=== PATIENT | female | born 1955 ===

== ENCOUNTER 2018-03-27 17:16 | Emergency (ER) | payer MEDICAID ==
--- NOTE | 2018-03-27 18:02 | ED PDOC ---
HPI: Hypertension/Hypotension Time Seen by Provider: 03/27/18 17:41 Chief Complaint (Nursing): High Blood Pressure Chief Complaint (Provider): "HTN" History Per: Patient Additional Complaint(s): Patient is a 62 yo female, PMH of DM and HTN, presents to ED with complaints of dizziness, worse with movement. Pt also reports associated nausea, no vomiting. pt concerned that her BP might be elevated. No Cp or SOB. no palpitations or Diaphoresis Past Medical History Reviewed: Historical Data, Nursing Documentation, Vital Signs Vital Signs: Last Vital Signs Temp 97.7 F 03/27/18 17:21 Pulse 92 H 03/27/18 17:21 Resp 18 03/27/18 17:21 BP 137/90 03/27/18 17:21 Pulse Ox 100 03/27/18 17:21 - Medical History PMH: HTN, Hypercholesterolemia, Hypothyroidism - Family History Family History: States: Unknown Family Hx - Living Arrangements Living Arrangements: With Family - Social History Current smoker - smoking cessation education provided: No Alcohol: None Drugs: Denies - Immunization History Hx Tetanus Toxoid Vaccination: No Hx Influenza Vaccination: No Hx Pneumococcal Vaccination: No - Home Medications Home Medications: Ambulatory Orders Medication Instructions Recorded Albuterol HFA [Ventolin HFA 90 1 puff IH Q4 PRN #1 inh 08/09/15 mcg/actuation (8 g)] Azithromycin [Zithromax Z-Mike] 250 mg PO DAILY #1 packet 08/09/15 Promethazine HCl/Codeine 5 ml PO Q6 PRN #120 ml 08/09/15 [Promethazine HCl-Codeine Phosphate 10 mg/5 ml] Meclizine [Meclizine*] 25 mg PO Q6 #30 tab 03/27/18 Methylprednisolone [Medrol Dose 4 mg PO DAILY #21 mg 03/27/18 Pack (21 tabs)] - Allergies Allergies/Adverse Reactions: Allergies Allergy/AdvReac Type Severity Reaction Status Date / Time No Known Allergies Allergy Verified 08/08/15 20:38 Review of Systems ROS Statement: Except As Marked, All Systems Reviewed And Found Negative Neurological: Positive for: Dizziness Physical Exam - Reviewed Nursing Documentation Reviewed: Yes Vital Signs Reviewed: Yes - Physical Exam Appears: Positive for: Well, Non-toxic, No Acute Distress Head Exam: Positive for: ATRAUMATIC, NORMAL INSPECTION, NORMOCEPHALIC Skin: Positive for: Normal Color, Warm, DRY Eye Exam: Positive for: EOMI, Normal appearance, PERRL ENT: Positive for: Normal ENT Inspection Neck: Positive for: Normal, Painless ROM Cardiovascular/Chest: Positive for: Regular Rate, Rhythm Respiratory: Positive for: CNT, Normal Breath Sounds Gastrointestinal/Abdominal: Positive for: Normal Exam, Soft Back: Positive for: Normal Inspection Extremity: Positive for: Normal ROM Neurologic/Psych: Positive for: Alert, Oriented - Laboratory Results Result Diagrams: 03/27/18 18:30 03/27/18 18:30 - ECG O2 Sat by Pulse Oximetry: 100 Medical Decision Making Medical Decision Making: Diagnostics ordered Antivert administered. CT scan: No acute intracranial pathology noted labs resulted and reviewed. neuro exam remains non focal on re-eval and Pt reports feeling improveed. vitals remain stable on re-eval. Pt stable for discharge Disposition - Clinical Impression Clinical Impression: Vertigo - Patient ED Disposition Is Patient to be Admitted: No - Disposition Disposition: Routine/Home Disposition Time: 19:46 Condition: STABLE Prescriptions: Meclizine [Meclizine*] 25 mg PO Q6 #30 tab Methylprednisolone [Medrol Dose Pack (21 tabs)] 4 mg PO DAILY #21 mg Instructions: Vertigo (a Type of Dizziness) Forms: [employer] ([place]) Print Language: POLISH
[2018-03-27 18:43] LABS: BASO # 0.1 K/uL (0.0-0.2); BASO % 0.6 % (0.0-2.0); EOS # 0.2 K/uL (0.0-0.7); EOS % 1.5 % (0.0-4.0); HEMOGLOBIN 13.7 g/dL (12.0-16.0); LYMPH # 1.9 K/uL (1.0-4.3); LYMPH % 17.9 % (20.0-40.0); MEAN CELL VOLUME 89.7 fl (81.0-99.0); MEAN CORPUSCULAR HEMOGLOBIN 30.1 pg (27.0-31.0); MEAN CORPUSCULAR HGB CONC 33.6 g/dL (33.0-37.0); MEAN PLATELET VOLUME 8.8 fl (7.2-11.7); MONO # 0.3 K/uL (0.0-0.8); MONO % 3.3 % (0.0-10.0); NEUT # 7.9 K/uL (1.8-7.0); NEUT % 76.7 % (50.0-75.0); RBC 4.56 Mil/uL (3.80-5.20); RED CELL DISTRIBUTION WIDTH 13.3 % (11.5-14.5); WHITE BLOOD COUNT 10.3 K/uL (4.8-10.8)
[2018-03-27 18:50] LABS: INR 0.9
[2018-03-27 18:52] LABS: PARTIAL THROMBOPLASTIN TIME 26.2 Seconds (25.6-37.1)
[2018-03-27 18:58] LABS: ALB/GLOB RATIO 1.1 (1.0-2.1); ALBUMIN 4.4 g/dL (3.5-5.0); ALT/SGPT 35 U/L (9-52); AST/SGOT 30 U/L (14-36); BLOOD UREA NITROGEN 16 mg/dl (7-17); CALCIUM 9.3 mg/dL (8.4-10.2); GFR NON-AFRICAN AMERICAN > 60
[2018-03-27 19:32] LABS: PROTHROMBIN TIME 9.7 Seconds (9.8-13.1)
[2018-03-27 19:49] VITALS: BP 152/86; PULSE 94; RESP 16; TEMP 98; O2SAT 97
--- NOTE | 2018-03-28 08:13 | RAD ---
Date of service: 03/27/2018 PROCEDURE: CHEST RADIOGRAPH, 1 VIEW HISTORY: dizzy COMPARISON: Chest radiograph 08/08/2015. FINDINGS: LUNGS: Diminished pulmonary volumes. Nevertheless, no interval infiltrate identified bilaterally. PLEURA: No pneumothorax or pleural fluid seen. CARDIOVASCULAR: Normal cardiac size. No pulmonary vascular congestion. No thoracic aortic calcifications identified. OSSEOUS STRUCTURES: No significant abnormalities. VISUALIZED UPPER ABDOMEN: Normal. OTHER FINDINGS: None. IMPRESSION: Diminished pulmonary volumes. No infiltrate, pleural effusion or pneumothorax bilaterally. No pulmonary vascular congestion.
--- NOTE | 2018-03-28 09:42 | CARD ---
APPROVED REPORT Date of service: 03/27/2018 EKG Measurement Heart [id number] <Conclusion> Normal sinus rhythm Normal Electrocardiogram
--- NOTE | 2018-03-28 09:46 | CT ---
Date of service: 03/27/2018 PROCEDURE: CT HEAD WITHOUT CONTRAST. HISTORY: dizzy COMPARISON: None available. TECHNIQUE: Axial computed tomography images were obtained through the head/brain without intravenous contrast. Radiation dose: Total exam DLP = 781.61 mGy-cm. This CT exam was performed using one or more of the following dose reduction techniques: Automated exposure control, adjustment of the mA and/or kV according to patient size, and/or use of iterative reconstruction technique. FINDINGS: HEMORRHAGE: No intracranial hemorrhage. BRAIN: Cortical lucency seen scattered throughout the bilateral cerebral hemispheres as well as periventricular white matter lucency, compatible with chronic microangiopathy. There is no mass effect or cortical edema identified above or below the tentorium. Ventricular sulcal and cisternal spaces appear normal in overall volume throughout. No suspicious extra-axial fluid collection identified. VENTRICLES: Unremarkable. No hydrocephalus. CALVARIUM: Unremarkable. PARANASAL SINUSES: Unremarkable as visualized. No significant inflammatory changes. MASTOID AIR CELLS: Unremarkable as visualized. No inflammatory changes. OTHER FINDINGS: None. IMPRESSION: No definitive CT pattern to suggest acute subacute brain infarction at this time with MRI available for follow-up if clinically warranted. [id number] chronic microangiopathy is appreciated scattered throughout the cerebral hemispheres bilaterally. Concordant preliminary report from [facility], 03/27/2018.
== END 2018-03-27 19:40 | disposition home or self-care (01) ==
LOC: H.ER 17:16
DX: R42 Dizziness and giddiness (principal); E11.51 Type 2 diabetes mellitus with diabetic peripheral angiopathy without gangrene; E03.9 Hypothyroidism, unspecified; E78.00 Pure hypercholesterolemia, unspecified; I10 Essential (primary) hypertension